=== PATIENT | female | born 1955 | race Caucasian/White ===

== ENCOUNTER → 2017-09-24 20:00 | Outpatient (CLI) | payer BC, SELFPAY | PROVIDERS: Family Provider Internal Medicine; PCP Internal Medicine; Visit Provider Internal Medicine | DX: G47.33 Obstructive sleep apnea (adult) (pediatric) (principal) | CPT/HCPCS: 95811 ==

== ENCOUNTER 2017-10-22 21:09 | Emergency (ER) | payer BC, SELFPAY ==
[2017-10-22 21:11] VITALS: BP 165/76; PULSE 78; RESP 18; TEMP 36.9; O2SAT 99; BMI 29.2
--- NOTE | 2017-10-22 21:50 | EKG12_ITS ---
Test Reason : CHEST PRESSURE Blood Pressure : / mmHG Vent. Rate : 072 BPM Atrial Rate : 072 BPM P-R Int : 138 ms QRS Dur : 082 ms QT Int : 398 ms P-R-T Axes : 045 -14 029 degrees QTc Int : 435 ms Normal sinus rhythm T wave abnormality, consider anterior ischemia Abnormal ECG Confirmed by AIDA BARRIOS, STEPHANE ([id number]), editor trade journal TRAE WRIGHT ([id number]) on 10/25/2017 1:25:38 PM Referred By: KAM Confirmed By:STEPHANE PARRA MD
[2017-10-22 21:56] LABS: Absolute Lymphocyte Count 3.09 X10^3/ul (0.83-4.51); Absolute Neutrophil Count 5.4 X10^3/uL (2.0-7.7); Basophil# 0.04 X10^3/uL; Basophil% 0.4 % (0-1); Eosinophil# 0.39 X10^3/uL; Hematocrit 38.8 % (37-47); Hemoglobin 12.8 g/dl (12.0-15.0); Lymphocyte # 3.09 X10^3/ul (4.0); Lymphocyte % 31.7 % (19-41); Mean Corpuscular Hgb 31.6 pg (27.0-32.0); Mean Corpuscular Volume 95.8 fL (81-99); Mean Platelet Vol. 8.1 fl (6.2-12.0); Monocyte# 0.78 X10^3/uL; Neutrophil # 5.38 X10^3/uL (2.7-7.7); Neutrophil % 55.3 % (47-70); Platelet Count 367 K/mm3 (150-450); RBC Distribution Width CV 13.1 % (11.6-14.6); RBC Distribution Width SD 43.9 fl (35.1-43.9); Red Blood Count 4.05 M/mm3 (4.2-5.4); White Blood Count 9.7 K/mm3 (4.4-11.0)
[2017-10-22 21:58] LABS: POSITIVE COUNT NO; POSITIVE DIFFERENTIAL NO; POSITIVE MORPHOLOGY NO
[2017-10-22 22:11] LABS: Anion Gap 7 (5-15); BUN 13 mg/dL (7-18); BUN/Creat Ratio 13.7 RATIO (10-20); Calcium,Total 8.6 mg/dL (8.5-10.1); Chloride 106 mmol/L (98-107); Creatinine, Serum 0.95 mg/dL (0.55-1.02); EST Glomerular Filtration Rate 64 mL/min (>60); Est Glom Filt Rate - Afr Amer 77 mL/min (>60); Estimated Creatinine Clearance 46.33 ml/min; Glucose 95 mg/dL (74-106); Potassium 3.6 mmol/L (3.5-5.1); Sodium Level 140 mmol/L (136-145)
[2017-10-22 22:28] VITALS: BP 143/73; PULSE 79; RESP 18; O2SAT 93
--- NOTE | 2017-10-22 22:29 | ED.VISSUMM ---
- ER Visit Summary Date of Service: 10/22/17 Chief Complaint: Hypertension, headaches, nosebleed History of Present Illness: The patient is a 62 F who for the past 7-10 days has had intermittent frontal headaches, right-sided nosebleeds. Patient states she checks her blood pressure when she gets these symptoms as noted her systolic blood pressure to be in the 160s. States she normally runs in the 120s-130s. She does not check her blood pressure on days that she does not have symptoms. She states her last blood pressure check was probably 3 months ago. Patient is currently on Cardizem and hydrochlorothiazide and there have been no missed doses or changes to her medication. Physical Examination: Vital signs include a blood pressure 165/76, otherwise normal. Head neck examination reveals nasal turbinates to be boggy. No blood is noted in the nares. Heart is regular rate and rhythm. Lung sounds are clear. Abdomen soft nontender. Neuro exam is normal. Test Results: EKG was obtained per nursing protocol reveals sinus rhythm at 72 bpm. There is lateral T-wave flattening and anterior T-wave inversions. This is actually improved when compared to prior studies. CBC and chemistry studies are normal. Emergency Department Course and Treatment: Patient is given 10 mg of IV hydralazine. Repeat blood pressure is 143/73. I requested the patient to check her blood pressure twice a day and recorded along with whether she is having any symptoms. She is then to take this to her primary care doctor's appointment for follow-up. Treatment Plan: [] Disposition: Discharge Impression: Hypertension, established This note was generated with [employer] dictation software. It may contain incorrect words, spelling, and punctuation that were not noted in review of the chart prior to signing ED Disposition - Plan for ED Patient: Chief Complaint: Hypertension Referrals: Melissa Monk MD [Primary Care Provider] -
--- NOTE | 2017-10-22 22:32 | ED.DEP ---
ED Disposition - Plan for ED Patient: Disposition: Home or Assisted Living Chief Complaint: Hypertension Instructions: ED HTN Established Referrals: Melissa Monk MD [Primary Care Provider] - 1-2 Weeks
[2017-10-22 22:50] VITALS: BP 145/70; PULSE 76; RESP 22; O2SAT 95
== END 2017-10-22 22:50 | disposition home or self-care (01) ==
PROVIDERS: Emergency Provider Emergency Medicine; Family Provider Internal Medicine; PCP Internal Medicine
DX: I10 Essential (primary) hypertension (principal); Z87.891 Personal history of nicotine dependence
CPT/HCPCS: 80048; 85025; 93005; 96374; 99283; A4216

== ENCOUNTER 2017-12-30 11:20 | Emergency (ER) | payer BC, SELFPAY ==
[2017-12-30 11:20] VITALS: BP 143/76; PULSE 86; RESP 15; TEMP 36.8; BMI 29.2
--- NOTE | 2017-12-30 11:44 | ED.VISSUMM ---
- ER Visit Summary Date of Service: 12/30/17 Chief Complaint: Atraumatic right knee pain. History of Present Illness: The patient is a 62 F 3 of osteoarthritis with prior left knee replacement about 6 years ago. Patient states she has had right knee pain for the last several days. Denies fall or trauma. No fever. Mild swelling. Increasing pain with walking or range of motion. No redness. No prior right lower extremity surgery. Physical Examination: Well appearing older female. Vital signs are stable and afebrile. She does not look septic toxic in any acute distress. HEENT exam unremarkable. Neck nontender. Lungs clear to auscultation bilaterally. Heart regular rate and rhythm no murmur. Abdomen soft nontender. Right knee mild swelling. No range of motion. Crepitance consistent with arthritis. No redness or warmth. Ligaments are intact. Normal range of motion. Distally right calf is nontender without edema or cords. Right foot is neurovascularly intact with dorsi and plantar flexion. Left lower extremity unremarkable well-healed left knee prior replacement surgery. Neurologic exam normal. Test Results: Patient was offered but deferred a right knee x-ray at this time. She is confident this is from arthritis. Emergency Department Course and Treatment: Discussed with patient. She has had joint injections in the past in her left knee prior to having it replaced. She would prefer a joint injection at this time. Patient was given a right knee joint injection under sterile technique. Knee was cleaned and a injection of Kenalog 40 mg and lidocaine was placed in the right knee with significant relief shortly after injection. Patient tolerated procedure well. Treatment Plan: Follow-up with her orthopedic doctor of choice. Disposition: Discharge Impression: Acute right knee pain secondary to osteoarthritis Knee joint injection of lidocaine and Kenalog by ER physician This note was generated with [employer] dictation software. It may contain incorrect words, spelling, and punctuation that were not noted in review of the chart prior to signing ED Disposition - Plan for ED Patient: Chief Complaint: Lower Extremity Injury Referrals: Melissa Monk MD [Primary Care Provider] -
--- NOTE | 2017-12-30 11:48 | ED.DCSUM_ITS ---
- ER Visit Summary Date of Service: 12/30/17 Chief Complaint: Atraumatic right knee pain. History of Present Illness: The patient is a 62 F 3 of osteoarthritis with prior left knee replacement about 6 years ago. Patient states she has had right knee pain for the last several days. Denies fall or trauma. No fever. Mild swelling. Increasing pain with walking or range of motion. No redness. No prior right lower extremity surgery. Physical Examination: Well appearing older female. Vital signs are stable and afebrile. She does not look septic toxic in any acute distress. HEENT exam unremarkable. Neck nontender. Lungs clear to auscultation bilaterally. Heart regular rate and rhythm no murmur. Abdomen soft nontender. Right knee mild swelling. No range of motion. Crepitance consistent with arthritis. No redness or warmth. Ligaments are intact. Normal range of motion. Distally right calf is nontender without edema or cords. Right foot is neurovascularly intact with dorsi and plantar flexion. Left lower extremity unremarkable well- healed left knee prior replacement surgery. Neurologic exam normal. Test Results: Patient was offered but deferred a right knee x-ray at this time. She is confident this is from arthritis. Emergency Department Course and Treatment: Discussed with patient. She has had joint injections in the past in her left knee prior to having it replaced. She would prefer a joint injection at this time. Patient was given a right knee joint injection under sterile technique. Knee was cleaned and a injection of Kenalog 40 mg and lidocaine was placed in the right knee with significant relief shortly after injection. Patient tolerated procedure well. Treatment Plan: Follow-up with her orthopedic doctor of choice. Disposition: Discharge Impression: Acute right knee pain secondary to osteoarthritis Knee joint injection of lidocaine and Kenalog by ER physician This note was generated with [email or web address] dictation software. It may contain incorrect words, spelling, and punctuation that were not noted in review of the chart prior to signing ED Disposition - Plan for ED Patient: Chief Complaint: Lower Extremity Injury Referrals: Melissa Monk MD [Primary Care Provider] -
--- NOTE | 2017-12-30 12:29 | ED.DEP ---
ED Disposition - Plan for ED Patient: Disposition: Home or Assisted Living Chief Complaint: Lower Extremity Injury Instructions: Osteoarthritis: Injections or Surgery, ED Degenerative Joint Disease Referrals: Daniel Adrian DO [STAFF PHYSICIAN] - Additional Instructions: Ice and elevate. Motrin for pain. Call and follow-up with an orthopedic doctor
[2017-12-30 12:50] VITALS: BP 128/70; PULSE 84; RESP 14; O2SAT 99
[2017-12-30] MEDS: Triamcinolone Acetonide 40 MG/ML Vial IU (12:51)
--- NOTE | 2017-12-30 12:51 | ED.RN ---
Ann Marie and namita given to dr jenkins for procedure. medication wasted in sharps by ed dr prior to scanning. hard charted into the system. serge street RN
== END 2017-12-30 12:52 | disposition home or self-care (01) ==
PROVIDERS: Emergency Provider Emergency Medicine; Family Provider Internal Medicine; PCP Internal Medicine
DX: M17.11 Unilateral primary osteoarthritis, right knee (principal); I10 Essential (primary) hypertension
CPT/HCPCS: 20610; 99282

== ENCOUNTER → 2025-02-25 | Outpatient (CLI) | payer BC, MEDICARE, SELFPAY ==
[2025-02-25 12:31] LABS: Hematocrit 39.8 % (37-47); Hemoglobin 12.8 g/dL (12.0-15.0); Immature Granulocytes Count 0.060 X10^3/uL (0.0-0.0); Mean Corp Hgb Conc 32.2 g/dL (32-36); Mean Corpuscular Volume 90.9 fL (81-99); Mean Platelet Vol. 9.0 fl (6.2-12.0); NRBC Flagged by Analyzer 0 % (0-5); Platelet Count 469 K/mm3 (150-450); RBC Distribution Width CV 13.7 % (11.6-14.6); RBC Distribution Width SD 46.2 fl (35.1-43.9); Red Blood Count 4.38 M/mm3 (4.2-5.4); White Blood Count 10.2 K/mm3 (4.4-11.0)
[2025-02-25 13:25] LABS: AST(SGOT) 16 U/L (<=31); Alanine Aminotransfer ALT/SGPT 8 U/L (<=34); Albumin, Serum 4.3 g/dL (3.4-4.8); Alkaline Phosphatase 135 U/L (35-104); Anion Gap 13 (5-15); BUN 14 mg/dL (4-19); BUN/Creat Ratio 15.5 RATIO (10-20); CRP 10.90 mg/L (0.0-3.0); Calcium,Total 9.5 mg/dL (7.6-11.0); Carbon Dioxide 24.7 mmol/L (21.0-32.0); Chloride 100 mmol/L (98-108); Globulin 3.8 g/dL (2.2-4.2); Glucose 89 mg/dL (70-99); Potassium 4.2 mmol/L (3.3-5.1)
== END | disposition home or self-care (01) ==
PROVIDERS: PCP Internal Medicine; Referring Provider Student in an Organized Health Care Education/Training Program; Visit Provider Student in an Organized Health Care Education/Training Program
DX: Z87.19 Personal history of other diseases of the digestive system (principal)
CPT/HCPCS: 36415; 80053; 85025; 85652; 86140

== ENCOUNTER → 2025-02-26 | Outpatient (CLI) | payer MEDICARE, BC, SELFPAY ==
[2025-03-02 02:07] LABS: Pancreatic Elastase, Fecal > 800 (>200)
[2025-03-02 09:08] LABS: Calprotectin, Stool 119 ug/g (0-120)
== END | disposition home or self-care (01) ==
LOC: LABSPEC 08:34
PROVIDERS: PCP Internal Medicine; Referring Provider Student in an Organized Health Care Education/Training Program; Visit Provider Student in an Organized Health Care Education/Training Program
DX: Z87.19 Personal history of other diseases of the digestive system (principal); K58.9 Irritable bowel syndrome, unspecified
CPT/HCPCS: 82653; 83630; 83993; 87177; 87209; 87329; 87493

== ENCOUNTER 2025-03-18 08:43 | Day surgery (SDC) | payer MEDICARE, BC, SELFPAY ==
[2025-03-18] VITALS (10 sets, daily range): BP systolic 87–146; BP diastolic 50–75; PULSE 77–95; RESP 16–18; TEMP 36.3–37.2; O2SAT 90–95; BMI 30.9
--- NOTE | 2025-03-18 08:55 | PCM.HP.STD ---
[facility] - General General Date of Admission: 03/18/25 Date of Service: 03/18/25 Chief Complaint: Abdominal pain with a history of ulcerative colitis with change in bowel habits. HPI Narrative DAJA MONSON, is a 69 F who presents with the Chief Complaint: alternaing bowels [facility] ED 02.04.[address] abd/pelvis 02.04.25; nonvisualized appendix, no evidence of bowel wall thickening, fluid in the right colon consistent with hx of diarrhea, colonic diverticulosis without diverticulitis, no intra abd/pelvic fluid [place] ED 02.07.25 for abd pain. Discharged with cipro and flagyl CT abd/pelvis; the wall thickening of the distal transverse colon through the rectum suspicious for inflammatory or infectious colitis. May also represent chronic scarring from diverticular changes. OV 7..25 Pt here today for continues issues with abd pain, loose stools and constipation. This started a few weeks ago and she was told she had diverticulitis. SHe was started on Cipro and flagyl and since then has finished the ATB. She did not feel it really helped with her symptoms. SHe continues to have right sided abd pain and alternating loose stools and constipation. She notes always struggling to regulate her bowels and distant diagnosis of UC. She is unsure hoe her UC was treated in the past. Last colonoscopy was over 10 years ago. [facility] Medical History Wears glasses Wears partial dentures Depression Anxiety Thyroid disease Gout Arthritis Fatty liver Hx of ulcerative colitis Former smoker CPAP (continuous positive airway pressure) dependence Sleep apnea Shortness of breath on exertion Home Medications ?Medication ?Instructions ?Recorded ?Last Taken ?Type Cholecalciferol (Vitamin D3) 5,000 iu PO DAILY 10/22/17 Unknown History [Vitamin D3] bupropion HCl 300 mg 24 hr tablet, 300 mg PO DAILY 10/22/17 Unknown History extended release venlafaxine 150 mg 150 mg PO DAILY 10/22/17 Unknown History capsule,extended release 24 hr amlodipine 5 mg tablet 5 mg PO DAILY 12/30/17 Unknown History dicyclomine 10 mg capsule 10 mg PO BID #20 caps 02/25/25 Unknown Rx gabapentin 300 mg capsule 300 mg PO TID 02/25/25 Unknown History levothyroxine 125 mcg tablet 125 mcg PO QDAY 02/25/25 Unknown History lisinopril 5 mg tablet 5 mg PO QDAY 02/25/25 Unknown History lubiprostone 24 mcg capsule 24 mcg PO .qd 02/25/25 Unknown History omeprazole 40 mg capsule,delayed 40 mg PO QDAY 02/25/25 Unknown History release tizanidine 4 mg tablet 4 mg PO TID PRN muscle spasticity 02/25/25 Unknown History ondansetron 4 mg disintegrating 4 mg PO Q6H PRN PRN nausea and 03/12/25 Unknown History tablet vomiting Allergy/AdvReac Type Severity Reaction Status Date / Time etodolac Allergy Hives Verified 03/12/25 10:29 Surgical History Hx of colonoscopy Social History Smoking Status: Former smoker Physical Exam Const alert, oriented x3, no apparent distress and healthy appearing General Appearance: cooperative GI normal to inspection, nondistended, normoactive bowel sounds, soft to palpation, non-tender and non-distended Percussion: normal to percussion Rectal Exam: deferred Assessment & Plan Assessment/Plan (1) Constipation: (2) Loose stools: (3) Hx of ulcerative colitis: PLAN: (1) Abdominal pain: (2) Hx of ulcerative colitis: Status: Acute Plan: Daja is a 69 yo female pt here today for evaluation abd pain and loose stools over the past few weeks. Pt was seen in the ED on two occasions for this. She had a CT 02/04/25 that did not show any acute abnormalities however repeat CT 02/06/25 showed thickening in the transverse colon and rectum concerning for IBD or infectious colitis. SHe was treated with cipro and flagyl with little improvements in her symptoms. No stool testing was ever completed. I have ordered stool testing for infection and inflammation. SHe endorses a hx of UC. It sounds like she has not had any recent flares and is not being treated at this time. She will be scheduled for colonoscopy wit biopsy to assess for IBD or infectious colitis. I provided prescription for bentyl for abd pain. -Stool testing -Colonoscopy -Bentyl PRN -f/u after procedure (3) Loose stools: Status: Acute (4) Constipation: Status: Acute Orders: Orders Calprotectin, Stool Today Z87. - Personal history of other diseases of the digestive system CRP Today Z87. - Personal history of other diseases of the digestive system Erythrocyte Sed Rate Today Z87. - Personal history of other diseases of the digestive system CBC W/Diff, Automated Today Z87. - Personal history of other diseases of the digestive system ENTERIC PATHOGEN PANEL STOOL Today K58.9 - Irritable bowel syndrome, unspecified, Z. - Personal history of other diseases of the digestive system CDIFF (PCR) Today Z. - Personal history of other diseases of the digestive system Stool Lactoferrin/WBC Today K58.9 - Irritable bowel syndrome, unspecified, Z. - Personal history of other diseases of the digestive system OVA+PARA w/Giardia EIA [id number] Today Z87. - Personal history of other diseases of the digestive system Pancreatic Elastase, Fecal Today Z87. - Personal history of other diseases of the digestive system Comprehensive Metabolic Profil Today Z87. - Personal history of other diseases of the digestive system Medications: New dicyclomine 10 mg PO BID 20 caps 1RF
[2025-03-18] MEDS: Lactated Ringers 1,000 ML 15 ML IV (09:10)
--- NOTE | 2025-03-18 09:21 | PCM.PRE.AN2 ---
ASA Classification* ASA Classification ASA Classification: 2 Assessment & Plan Anesthesia* Anesthesia Assessment Anesthesia Assessment: Discussed sedation and/or anesthesia options, risks, benefits, and alternatives with patient/parents/legal guardian/POA. Questions invited. The patient/parents/legal guardian/POA seems to understand and agrees to proceed with anesthesia plan. Reviewed the physical assessment, medical history, allergy history and patient home medications list prior to surgery/procedure/anesthetic and documented any changes. Performed airway and anesthesia risk assessments. Anesthesia Type Anesthesia Type: MAC Anesthesia Focused Assessment* Temperature: 99 F Pulse Rate: 83 Blood Pressure: 146/75 Respiratory Rate: 18 Pulse Ox: 95 Airway Assessment Mouth opens: >3 cm Mallampati Score: II Labs Anesthesia Preop lab: CBC WBC 10.2 K/mm3 (4.4-11.0) 02/25/25 11:43 02/25/25 RBC 4.38 M/mm3 (4.2-5.4) 02/25/25 11:43 02/25/25 Hgb 12.8 g/dL (12.0-15.0) 02/25/25 11:43 02/25/25 Hct 39.8 % (37-47) 02/25/25 11:43 02/25/25 Plt Count 469 K/mm3 (150-450) H 02/25/25 11:43 02/25/25 CHEMISTRY Potassium 4.2 mmol/L (3.3-5.1) 02/25/25 11:43 02/25/25 Sodium 138 mmol/L (133-145) 02/25/25 11:43 02/25/25 BUN 14 mg/dL (4-19) 02/25/25 11:43 02/25/25 Creatinine 0.90 mg/dL (0.70-1.20) 02/25/25 11:43 02/25/25 Glucose 89 mg/dL (70-99) 02/25/25 11:43 02/25/25 COAG PT 13.3 SECONDS (11.9-14.4) 10/08/12 17:09 10/08/12 Pre-Assessment Diagnosis/Proposed Procedure Planned Operative Procedure(s): Colonoscopy Anesthesia History 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 When Was Last Pacemaker Check QUESTION #4 FULL TEXT: You/Your Family Experience fever (hyperthermia) with Anesthesia Last Oral Intake Last Oral intake: Last Oral Intake NPO since 05:30 03/18/25 09:07 Meds taken in AM with sips of Yes 03/18/25 09:07 water? Meds patient instructed to see medlist 03/18/25 09:07 take am of surgery PONV PONV - shrimp peeling machine tender: PONV - shrimp peeling machine tender Female Yes 03/12/25 10:39 HX of Motion Sickness No 03/12/25 10:39 HX of N/V After Surgery No 03/12/25 10:39 Non-Smoker Yes 03/12/25 10:39 Duration of Surgery greater No 03/12/25 10:39 than 60 minutes Number of Risk Factors 2 03/12/25 10:39 PONV Score Moderate Risk 03/12/25 10:39 Height & Weight Height & Weight: Anesthesia: Height & Weight Height 5 ft 03/18/25 09:07 Weight: 72 kg 03/18/25 09:07 Body Mass Index (BMI) 30.9 03/18/25 09:07 Respiratory Assessment Respiratory Assessment - shrimp peeling machine tender: Respiratory Tract Infection Hx - shrimp peeling machine tender Hx Respiratory Tract Infection No 03/12/25 10:39 STOP Sleep Apnea STOP Sleep Apnea - shrimp peeling machine tender: STOP Sleep Apnea - shrimp peeling machine tender Hx Hypertension Yes 03/12/25 10:39 Hx Sleep Apnea Yes 03/12/25 10:39 CPAP Yes 03/12/25 10:39 BIPAP No 03/12/25 10:39 Do you snore loudly (louder than talking or can be heard Do you often feel tired/ fatigued/ sleepy during daytime? Has anyone observed you stop breathing during sleep? STOP Results Positive 03/12/25 10:39 QUESTION #5 FULL TEXT : Do you snore loudly (louder than talking or can be heard through closed doors)? 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 Specify any problems Hx of Preganancy in last 3 No 03/12/25 10:39 Months Nurse Filling Out Transfusion MEL 03/12/25 10:39 & Questions: Date: 03/12/25 03/12/25 10:39 Time: 10:41 03/12/25 10:39 Patient unable to answer at this time (ie. confused, unrespo /Reproduction History /Reproductive History - shrimp peeling machine tender: /Reproductive Hx- shrimp peeling machine tender Hx Now No 03/12/25 10:39 Gestational Age (in weeks): EDC: Hx Hx Para Hx Section SAB No 03/12/25 10:39 Active Medications Active Medications: Current Medications Generic Name Dose Route Start Last Admin Trade Name Freq PRN Reason Stop Dose Admin Lactated Ringer's 1,000 mls @ 15 mls/hr 03/18/25 09:00 03/18/25 09:10 IV 15 mls/hr .Q48H XUAN Administration PFSH Medical History Wears glasses Wears partial dentures Depression Anxiety Thyroid disease Gout Arthritis Fatty liver Hx of ulcerative colitis Former smoker CPAP (continuous positive airway pressure) dependence Sleep apnea Shortness of breath on exertion Home Medications ?Medication ?Instructions ?Recorded ?Last Taken ?Type Cholecalciferol (Vitamin D3) 5,000 iu PO DAILY 10/22/17 Unknown History [Vitamin D3] bupropion HCl 300 mg 24 hr tablet, 300 mg PO DAILY 10/22/17 03/18/25 History extended release venlafaxine 150 mg 150 mg PO DAILY 10/22/17 03/18/25 History capsule,extended release 24 hr amlodipine 5 mg tablet 5 mg PO DAILY 12/30/17 03/17/25 History dicyclomine 10 mg capsule 10 mg PO BID #20 caps 02/25/25 03/18/25 Rx gabapentin 300 mg capsule 300 mg PO TID 02/25/25 03/18/25 History levothyroxine 125 mcg tablet 125 mcg PO QDAY 02/25/25 03/18/25 History lisinopril 5 mg tablet 5 mg PO QDAY 02/25/25 Unknown History lubiprostone 24 mcg capsule 24 mcg PO .qd 02/25/25 Unknown History omeprazole 40 mg capsule,delayed 40 mg PO QDAY 02/25/25 03/18/25 History release tizanidine 4 mg tablet 4 mg PO TID PRN muscle spasticity 02/25/25 Unknown History ondansetron 4 mg disintegrating 4 mg PO Q6H PRN PRN nausea and 03/12/25 Unknown History tablet vomiting Allergy/AdvReac Type Severity Reaction Status Date / Time etodolac Allergy Hives Verified 03/18/25 09:01 Surgical History Hx of colonoscopy Social History Smoking Status: Former smoker Review of Systems (Anesthesia) ROS Narrative System reviewed and no additional complaints, except as documented.
--- NOTE | 2025-03-18 09:45 | COLBX_PTH ---
PATIENT: JAELYN MONSON LOC: EN U#:[id number] AGE/SX: 69/F ROOM: RE03/18/[address]: Dr. Jericho Salcido DO : 1955 BED: DIS: 03/18/2025 SPEC #: [id number] RECD: 03/18/25 11:50 STATUS: BERNABE REQ #: [id number] AGATA: 03/18/25 09:[address]: Jericho Salcido DEPT: SURGICAL PATHOLOGY RECD BY: Michael Gooden ENTERED: 03/18/25 14:50 SP TYPE: COLON BX GILBERT DR: Dr. Melissa Monk MD Tissues: A - Rectosigmoid junction B - COLON BIOPSY C - Transverse colon Procedures: Surgery Specimen Level IV HEADER OPERATION: Colonoscopy and biopsy PRE-OP DIAGNOSIS: History of ulcerative colitis, loose stools vs constipation TISSUE SUBMITTED: A- Recto-sigmoid juncture biopsy, B- Random colon biopsy, C- Transverse colon polyp MICROSCOPIC DIAGNOSIS A. Large intestine, rectosigmoid junction, biopsies: - Surface erosion with underlying cryptic atrophic changes (See COMMENT) B. Large intestine, random: * No evidence of active inflammatory bowel disease or dysplasia C. Large intestine, transverse polyp: * Tubular adenoma COMMENT The findings in Part A are not specific and may represent a traumatic injury. No inflammatory pseudo-membrane formation or evidence of active inflammatory bowel disease are identified. MICROSCOPIC DESCRIPTION Slides are reviewed. GROSS DESCRIPTION A. Received in fixative in one container labeled with the patient's name and designated Recto-sigmoid junction biopsy. The specimen consists of two irregular fragments of light zavala tissue, each measuring 0.1 cm. The specimen is totally submitted in one cassette. B. Received in fixative in one container labeled with the patient's name and designated Random colon biopsy. The specimen consists of multiple irregular fragments of light zavala tissue that in aggregate measure 0.6 x 0.6 x 0.1 cm. The specimen is totally submitted in one cassette. C. Received in fixative in one container labeled with the patient's name and designated Transverse colon polyp. The specimen consists of two irregular fragments of light zavala tissue, each measuring 0.3 cm. The specimen is totally submitted in one cassette. UT 03/18/2025 CPT:41638b3
--- NOTE | 2025-03-18 10:24 | OP.PROVAT_ITS ---
03/18/2025 Melissa Monk [address] [place] [address] Re : Colonoscopy procedure for [facility] Dear Dr. Monk This procedure was performed on March. My impressions and recommendations are as follows: Impressions : - Grade 3 rectal prolapse found on perianal exam. - Rectal prolapse. - Diverticulosis in the recto-sigmoid colon, in the sigmoid colon and in the descending colon. - Stool in the rectum, in the sigmoid colon, in the transverse colon and in the cecum. - One 5 mm polyp in the transverse colon, removed with a cold snare. Resected and retrieved. - Congested mucosa in the entire examined colon. Biopsied. - A few ulcers in the rectum and in the recto-sigmoid colon. Biopsied. Recommendations : - Discharge patient to home. - Resume previous diet. - Continue present medications. - Await pathology results. - Repeat colonoscopy because the bowel preparation was suboptimal. My findings are described in the full procedure note, which is enclosed. If I can be of further assistance, please feel free to contact me at . Sincerely, Jericho Salcido, 03/18/2025 10:24:11 AM This report has been signed electronically.
--- NOTE | 2025-03-18 10:24 | OP.COLON_ITS ---
Patient Name: Daja Morales Procedure Date: 03/18/2025 9:37 AM Date of : 1955 Age: 69 Procedure: Colonoscopy Indications: Screening for colorectal malignant neoplasm Providers: Jericho Salcido DO Referring MD: Melissa Monk Medicines: Monitored Anesthesia Care Patient Profile: This is a 69 year old female. Refer to note in patient chart for documentation of history and physical. Last Colonoscopy: several years ago. Complications: No immediate complications. Procedure: Pre-Anesthesia Assessment: - Prior to the procedure, a History and Physical was performed, and patient medications and allergies were reviewed. The patient is competent. The risks and benefits of the procedure and the sedation options and risks were discussed with the patient. All questions were answered and informed consent was obtained. Patient identification and proposed procedure were verified by the physician in the pre-procedure area. Mental Status Examination: alert and oriented. Airway Examination: normal oropharyngeal airway and neck mobility. Respiratory Examination: clear to auscultation. CV Examination: normal. Prophylactic Antibiotics: The patient does not require prophylactic antibiotics. Prior Anticoagulants: The patient has taken no anticoagulant or antiplatelet agents. ASA Grade Assessment: II - A patient with mild systemic disease. After reviewing the risks and benefits, the patient was deemed in satisfactory condition to undergo the procedure. The anesthesia plan was to use deep sedation / analgesia. Immediately prior to administration of medications, the patient was re-assessed for adequacy to receive sedatives. The heart rate, respiratory rate, oxygen saturations, blood pressure, adequacy of pulmonary ventilation, and response to care were monitored throughout the procedure. The physical status of the patient was re-assessed after the procedure. After I obtained informed consent, the scope was passed under direct vision. Throughout the procedure, the patient's blood pressure, pulse, and oxygen saturations were monitored continuously. The Colonoscope was introduced through the anus and advanced to the cecum, identified by appendiceal orifice and ileocecal valve. The colonoscopy was performed without difficulty. The patient tolerated the procedure well. Scope In: 9:47:22 AM Scope Withdrawal Time 0 hours 13 minutes 16 seconds Scope Out: 10:10:55 AM Total Procedure Duration Time 0 hours 23 minutes 33 seconds Findings: The perianal exam findings include Grade 3 rectal prolapse. Severe rectal prolapse was present. Multiple small and large-mouthed diverticula were found in the recto-sigmoid colon, sigmoid colon and descending colon. Stool was found in the rectum, in the sigmoid colon, in the transverse colon and in the cecum. Lavage of the area was performed, resulting in incomplete clearance with fair visualization. A 5 mm polyp was found in the transverse colon. The polyp was sessile. The polyp was removed with a cold snare. Resection and retrieval were complete. Verification of patient identification for the specimen was done. Estimated blood loss was minimal. An area of mildly congested mucosa was found in the entire colon. Biopsies were taken with a cold forceps for histology. Verification of patient identification for the specimen was done. Estimated blood loss was minimal. A few six mm ulcers were found in the rectum and in the recto-sigmoid colon. No bleeding was present. No stigmata of recent bleeding were seen. Biopsies were taken with a cold forceps for histology. Verification of patient identification for the specimen was done. Estimated blood loss was minimal. Impression: - Grade 3 rectal prolapse found on perianal exam. - Rectal prolapse. - Diverticulosis in the recto-sigmoid colon, in the sigmoid colon and in the descending colon. - Stool in the rectum, in the sigmoid colon, in the transverse colon and in the cecum. - One 5 mm polyp in the transverse colon, removed with a cold snare. Resected and retrieved. - Congested mucosa in the entire examined colon. Biopsied. - A few ulcers in the rectum and in the recto-sigmoid colon. Biopsied. Recommendation: - Discharge patient to home. - Resume previous diet. - Continue present medications. - Await pathology results. - Repeat colonoscopy because the bowel preparation was suboptimal. Procedure Code(s): --- Professional --- 89274, Colonoscopy, flexible; with removal of tumor(s), polyp(s), or other lesion(s) by snare technique 29374, 59, Colonoscopy, flexible; with biopsy, single or multiple CPT copyright 2021 [employer]. All rights reserved. The codes documented in this report are preliminary and upon spectral scientist review may be revised to meet current compliance requirements. Jericho Salcido DO 03/18/2025 10:24:11 AM This report has been signed electronically. Number of Addenda: 0 Note Initiated On: 03/18/2025 9:37 AM
--- NOTE | 2025-03-18 10:25 | PCM.POST.ANE ---
Anesthesia: Postop Eval I Current Vital Signs Temperature: 97.3 F Pulse Rate: 94 Blood Pressure: 87/66 Respiratory Rate: 18 Pulse Ox: 92 Oxygen Delivery Method: Room Air Assessment Airway patent: Yes Spontaneous unlabored respirations: Yes Mental status: Awake nausea: No Vomiting: No Anesthesia Complication: No Fluid Hydration Crystalloid volume administer (ml): 500 Total IV fluid infused: 500 Progress Note Anesthesia document: Postop Eval 1 completed: Yes
== END 2025-03-18 11:32 | disposition home or self-care (01) ==
LOC: EN 08:44 → AC 08:45
PROVIDERS: PCP Internal Medicine; Referring Provider Internal Medicine; Visit Provider Internal Medicine Gastroenterology
PROC: 0DJD8ZZ Inspection of Lower Intestinal Tract, Via Natural or Artificial Opening Endoscopic (ICD-10-PCS; CPT 45378; principal; 2025-03-18 09:40)
DX: Z12.11 Encounter for screening for malignant neoplasm of colon (principal); D12.3 Benign neoplasm of transverse colon; K62.3 Rectal prolapse; K57.30 Diverticulosis of large intestine without perforation or abscess without bleeding; K62.6 Ulcer of anus and rectum; F32.A Depression, unspecified; F41.9 Anxiety disorder, unspecified; Z79.890 Hormone replacement therapy; Z79.899 Other long term (current) drug therapy; Z87.891 Personal history of nicotine dependence; Z87.19 Personal history of other diseases of the digestive system
CPT/HCPCS: 45380; 45385; 88305; J2405